=== PATIENT | female | born 1965 | race Caucasian/White ===

== ENCOUNTER → 2016-12-30 | Day surgery (SDC) | payer OTHER ==
[~2016-12-30] MED LIST: DEXAMETHASONE SOD PHOS 20 MG/5 ML VIAL. ONE; FENO145T PO; HYDROmorphone 2 MG/ML VIAL IV PRN; IV RINGERS,LACTATED 1000ML 1,000 ML IV SCH; LEVO500T8 PO; LEVOFLOXACIN 750 MG IV ONE; LIDOCAINE 1% PF 2 ML VIAL. ID PRN; LIDOCAINE 2% PF Vial for OR 5 ML VIAL. ONE; METF500T4 PO; MIDAZOLAM HCL/PF 2 MG/2 ML VIAL. ONE; MORPHINE SULFATE 2 MG/ML DISP.SYRIN. IV PRN; MULT1TAB52 PO; ONDANSETRON PF 4 MG/2 ML VIAL. IV PRN; ONDANSETRON PF 4 MG/2 ML VIAL. ONE; OXYC-323 PO; PROCHLORPERAZINE 10 MG/2 ML VIAL. IV PRN; PROPOFOL 20 ML IV ONE; ROCURONIUM 100 MG/10 ML VIAL. ONE; SITA100T PO; [UNRECOGNIZED DRUG - OTHER] PO; fentaNYL PF VIAL 100 MCG/2 ML VIAL IV PRN; fentaNYL PF VIAL 250 MCG/5 ML VIAL ONE
[2016-12-30 11:58] VITALS: BP 119/77
[2016-12-30 12:24] LABS: NEG OBC UR NEG; POS OBC UR POS
== END | disposition home or self-care (01) ==
LOC: SURG 11:23
PROVIDERS: ATTEND Surgery
DX: K43.9 Ventral hernia without obstruction or gangrene (principal); Z53.8 Procedure and treatment not carried out for other reasons; E78.00 Pure hypercholesterolemia, unspecified; E11.22 Type 2 diabetes mellitus with diabetic chronic kidney disease; Z86.69 Personal history of other diseases of the nervous system and sense organs; Z90.49 Acquired absence of other specified parts of digestive tract; Z86.39 Personal history of other endocrine, nutritional and metabolic disease; Z88.1 Allergy status to other antibiotic agents
CPT/HCPCS: 81025; 82962; J2250; J2704; J3010; J1100; J1956; J2405; J2001

== ENCOUNTER 2017-01-06 06:39 | Day surgery (SDC) | payer OTHER ==
[~2017-01-06] VITALS: Ht 165.1 cm; Wt 98.9 kg
[~2017-01-06 06:39] MED LIST changes: -DEXAMETHASONE SOD PHOS 20 MG/5 ML VIAL. ONE; -HYDROmorphone 2 MG/ML VIAL IV PRN; -IV RINGERS,LACTATED 1000ML 1,000 ML IV SCH; -LEVOFLOXACIN 750 MG IV ONE; -LIDOCAINE 1% PF 2 ML VIAL. ID PRN; -LIDOCAINE 2% PF Vial for OR 5 ML VIAL. ONE; -MIDAZOLAM HCL/PF 2 MG/2 ML VIAL. ONE; -MORPHINE SULFATE 2 MG/ML DISP.SYRIN. IV PRN; -ONDANSETRON PF 4 MG/2 ML VIAL. IV PRN; -ONDANSETRON PF 4 MG/2 ML VIAL. ONE; -OXYC-323 PO; -PROCHLORPERAZINE 10 MG/2 ML VIAL. IV PRN; -PROPOFOL 20 ML IV ONE; -ROCURONIUM 100 MG/10 ML VIAL. ONE; -fentaNYL PF VIAL 100 MCG/2 ML VIAL IV PRN; -fentaNYL PF VIAL 250 MCG/5 ML VIAL ONE
[2017-01-06] MEDS ORDERED: PROCHLORPERAZINE 10 MG/2 ML VIAL. IV PRN (07:00)
[2017-01-06] MEDS ORDERED: IV RINGERS,LACTATED 1000ML 1,000 ML IV SCH (07:00)
[2017-01-06] MEDS ORDERED: fentaNYL PF VIAL 100 MCG/2 ML VIAL IV PRN (07:00)
[2017-01-06] MEDS ORDERED: LIDOCAINE 1% PF 2 ML VIAL. ID PRN (07:00)
[2017-01-06] MEDS ORDERED: HYDROmorphone 2 MG/ML VIAL IV PRN (07:00)
[2017-01-06] MEDS ORDERED: MORPHINE SULFATE 2 MG/ML DISP.SYRIN. IV PRN (07:00)
[2017-01-06] MEDS ORDERED: BUPIVAC MPF-EPI 0.5%-1:200000 10 ML VIAL. ONE (07:11)
[2017-01-06] MEDS ORDERED: PROPOFOL 20 ML IV ONE (08:05)
[2017-01-06] MEDS ORDERED: MIDAZOLAM HCL/PF 2 MG/2 ML VIAL. ONE (08:05)
[2017-01-06] MEDS ORDERED: fentaNYL PF VIAL 100 MCG/2 ML VIAL ONE ×2 (08:05→10:09)
[2017-01-06] MEDS ORDERED: ROCURONIUM 100 MG/10 ML VIAL. ONE (08:05)
[2017-01-06] MEDS ORDERED: LIDOCAINE 2% PF Vial for OR 5 ML VIAL. ONE (08:05)
[2017-01-06] MEDS ORDERED: DEXAMETHASONE SOD PHOS 20 MG/5 ML VIAL. ONE (08:56)
[2017-01-06] MEDS ORDERED: FAMOTIDINE 20 MG/2 ML VIAL ONE (08:56)
[2017-01-06] MEDS ORDERED: ONDANSETRON PF 4 MG/2 ML VIAL. ONE (08:56)
[2017-01-06] MEDS ORDERED: PHENYLEPHRINE 10 MG/ML VIAL. ONE (09:03)
[2017-01-06] MEDS ORDERED: NEOSTIGMINE METHYLSULFATE 5 MG/5 ML SYRINGE. ONE (09:17)
[2017-01-06] MEDS ORDERED: GLYCOPYRROLATE 1 MG/5 ML VIAL. ONE (09:17)
[2017-01-06] MEDS ORDERED: SEVOFLURANE 61 TO 120 MINUTES. IH ONE (09:19)
--- NOTE | 2017-01-06 10:47 | PDOC4 ---
Operative Note Operative Note Operative Note: Preoperative Diagnosis: Ventral hernia Postoperative Diagnosis: Same Procedure: Ventral hernia repair with mesh Surgeon: Seth Anesthesia: Normal EBL: 10 mL Specimen: None Drains: None Complications: None Indication: The patient is a 51-year-old female who had had prior laparoscopic surgery. She developed a supra umbilical hernia consistent with a ventral incisional hernia. She was offered surgical repair. The risks of surgery were discussed which include bleeding, infection, recurrence, pain, potential need for additional surgery or procedure. She understands and would like to proceed. Description: The patient was taken to the operating room and placed supine on the operating table. Gen. anesthesia was performed. The abdomen was prepped with ChloraPrep and draped in a standard surgical manner. A small supraumbilical incision was made in the skin which was carried in a curved manner alongside the umbilicus. Cautery dissection was carried down to the fascia. Hernia defect was readily identified superior to the umbilicus consistent with a ventral hernia. The hernia sac was fully freed from the surrounding tissues. The umbilical tissue was also elevated off the fascia exposing a small defect. I elected to combine the small umbilical defect with the supraumbilical hernia repair to plan for single repair. A preperitoneal plane was then developed with cautery and blunt dissection circumferentially around the edges of the fascial defect. A medium sized Ventralex ST mesh was then placed in the newly formed preperitoneal space. The mesh rested well with good overlap in all directions of the hernia defect. The mesh was secured into position with interrupted 0 Prolene sutures placed at the 12, 3, 6, and 9 o' clock position in a horizontal mattress fashion. The attenuated fascia was then closed over the mesh with interrupted 0 Prolene sutures. The umbilicus was secured back to the fascia with 0 Vicryl. The subcutaneous tissue was approximated with interrupted 3-0 Vicryl. The skin was then closed with a running 4-0 Monocryl suture. Steri-Strips and a sterile dressing were applied. An abdominal binder was also placed. The patient tolerated the procedure well and was sent to the recovery room in stable condition. At the end of the case all counts were correct. ROMÁN KINGSLEY MD Jan 06, 2017 10:47
--- NOTE | 2017-01-06 10:48 | DISCH ---
DISCHARGE INSTRUCTIONS Condition on Discharge Condition on Discharge: Stable Activity After Discharge Activity Instructions for Disc: Other, see below (no lifting over 20 LBS X 4 weeks) Diet after Discharge Diet after Discharge: Regular Wound Incision Care Wound/Incision Care: Other, see below (keep dressing clean and dry X 72 hours, may then remove and shower) Follow-Up Follow up with: Dr Kingsley in 2 weeks, call for appt [phone] ROMÁN KINGSLEY MD Jan 06, 2017 10:48
[2017-01-06] MEDS: fentaNYL PF VIAL 100 MCG/2 ML VIAL IV PRN ×2 (10:50→11:03)
[2017-01-06] MEDS ORDERED: OXYC-323 PO (11:16)
[2017-01-06] MEDS ORDERED: oxyCODONE/APAP 5/325 1 TAB TABLET PO PRN (11:45)
[2017-01-06 12:29] VITALS: BP 123/75
== END 2017-01-06 13:21 | disposition home or self-care (01) ==
LOC: SURG 06:39
PROVIDERS: ATTEND Surgery
DX: K43.9 Ventral hernia without obstruction or gangrene (principal); E78.00 Pure hypercholesterolemia, unspecified; Z90.49 Acquired absence of other specified parts of digestive tract; E66.9 Obesity, unspecified; Z68.36 Body mass index [BMI] 36.0-36.9, adult; E11.22 Type 2 diabetes mellitus with diabetic chronic kidney disease; Z86.69 Personal history of other diseases of the nervous system and sense organs; Z87.39 Personal history of other diseases of the musculoskeletal system and connective tissue; Z86.39 Personal history of other endocrine, nutritional and metabolic disease; Z88.1 Allergy status to other antibiotic agents
CPT/HCPCS: 49565; 49568; 82962; J0780; J1100; J1956; J2250; J2405; J2704; J2710; J3010; J3490; J7120; S0028; J2001